=== PATIENT | male | born 1980 | race American Indian/Alaskan Native ===

== ENCOUNTER 2018-09-12 18:58 | Emergency (ER) | payer SELFPAY ==
[2018-09-12 18:59] VITALS: BMI 24.3
[2018-09-12 19:23] VITALS: TEMP 98.3
--- NOTE | 2018-09-12 19:47 | ED PDOC ---
Arrival/HPI <Omkar Schafer - Last Filed: 09/12/18 22:05> - General Historian: Patient - History of Present Illness Narrative History of Present Illness (Text): 38 y/o male with no PMH of asthma presents to the ED c/o left shoulder and upper back pain x 2 weeks. Denies specific trauma but does a lot of heavy lifting and repetitive movement at work. The pain is worse after strenuous work days and with internal rotation of shoulder. Has not taken any medications for pain. Denies chest pain, SOB, fever, chills, numbness, weakness, paresthesias, cough, neck pain, or any other associated symptoms. <Anna Delong - Last Filed: 09/14/18 23:09> - General Chief Complaint: Upper Extremity Problem/Injury Time Seen by Provider: 09/12/18 19:19 Past Medical History - Provider Review Nursing Documentation Reviewed: Yes - Infectious Disease Hx of Infectious Diseases: None - Tetanus Immunization Tetanus Immunization: Unknown - Past Medical History Past Medical History: No Previous - Cardiac Hx Cardiac Disorders: No - Pulmonary Hx Respiratory Disorders: Yes Hx Asthma: Yes - Neurological Hx Neurological Disorder: No - HEENT Hx HEENT Disorder: No - Renal Hx Renal Disorder: No - Endocrine/Metabolic Hx Endocrine Disorders: No - Hematological/Oncological Hx Blood Disorders: No - Integumentary Hx Dermatological Disorder: No - Musculoskeletal/Rheumatological Hx Musculoskeletal Disorders: No - Gastrointestinal Hx Gastrointestinal Disorders: No - Genitourinary/Gynecological Hx Genitourinary Disorders: No - Psychiatric Hx Psychophysiologic Disorder: No Hx Substance Use: Yes - Past Surgical History Past Surgical History: No Previous - Anesthesia Hx Anesthesia: Yes Hx Anesthesia Reactions: No Hx Malignant Hyperthermia: No - Suicidal Assessment Feels Threatened In Home Enviroment: No <Anna Delong - Last Filed: 09/14/18 23:09> Family/Social History - Physician Review Nursing Documentation Reviewed: Yes Family/Social History: No Known Family HX Smoking Status: Heavy Smoker > 10 Cigarettes Daily Hx Alcohol Use: Yes Frequency of alcohol use: Socially Hx Substance Use: Yes Substance used: marijuana Hx Substance Use Treatment: No <Anna Delong - Last Filed: 09/14/18 23:09> Allergies/Home Meds <Omkar Schafer - Last Filed: 09/12/18 22:05> <SindiAnna - Last Filed: 09/14/18 23:09> Allergies/Adverse Reactions: Allergies No Known Allergies Allergy (Verified 09/12/18 19:14) Review of Systems - Review of Systems Constitutional: Normal. absent: Fevers Eyes: Normal. absent: Vision Changes ENT: Normal. absent: Sore Throat, Sinus Congestion Respiratory: Normal. absent: SOB, Cough Cardiovascular: Normal. absent: Chest Pain, Palpitations, Syncope Gastrointestinal: Normal. absent: Abdominal Pain, Nausea, Vomiting Musculoskeletal: Back Pain, Other (left shoulder pain) Skin: Normal. absent: Rash Neurological: Normal. absent: Headache, Dizziness <SindiAnna - Last Filed: 09/14/18 23:09> Physical Exam Vital Signs Temp Pulse Resp BP Pulse Ox 09/12/18 19:13 98.3 F 89 16 133/82 98 <Omkar Schafer - Last Filed: 09/12/18 22:05> Vital Signs Reviewed: Yes Vital Signs Temp Pulse Resp BP Pulse Ox 09/12/18 19:13 98.3 F 89 16 133/82 98 Temperature: Afebrile Blood Pressure: Normal Pulse: Regular Respiratory Rate: Normal Appearance: Positive for: Well-Appearing, Non-Toxic, Comfortable Pain Distress: None Mental Status: Positive for: Alert and Oriented X 3 - Systems Exam Head: Present: Atraumatic, Normocephalic Pupils: Present: PERRL Extroacular Muscles: Present: EOMI Conjunctiva: Present: Normal Mouth: Present: Moist Mucous Membranes Neck: Present: Normal Range of Motion. No: Meningeal Signs, MIDLINE TENDERNESS, Paraspinal Tenderness Respiratory/Chest: Present: Clear to Auscultation, Good Air Exchange. No: Respiratory Distress, Accessory Muscle Use Cardiovascular: Present: Regular Rate and Rhythm, Normal S1, S2 Back: Present: Normal Inspection, Paraspinal Tenderness (left upper thoracic with spasm and tenderness). No: CVA Tenderness, Midline Tenderness Upper Extremity: Present: Normal Inspection, Normal ROM, NORMAL PULSES, Neurovascularly Intact, Capillary Refill < 2s, Other (pain with internal rotation of shoulder; + Gerbers test). No: Cyanosis, Edema, Tenderness, Temperature Abnormalties, Deformity Lower Extremity: Present: Normal Inspection, NORMAL PULSES, Normal ROM, Neurovascularly Intact, Capillary Refill < 2 s. No: Edema, Temperature Abnormalties Neurological: Present: GCS=15, CN II-XII Intact, Speech Normal, Motor Func Grossly Intact, Normal Sensory Function, Gait Normal Skin: Present: Warm, Dry, Normal Color. No: Rashes, Abscess, Abrasion Psychiatric: Present: Alert, Oriented x 3, Normal Insight, Normal Concentration, Normal Affect, Normal Mood <Anna Delong - Last Filed: 09/14/18 23:09> Medical Decision Making - Lab Interpretations Lab Results: Troponin I < 0.01 ng/mL 09/12/18 20:31 Total Bilirubin 0.4 mg/dL (0.2-1.3) 09/12/18 20:31 AST 34 U/L (17-59) 09/12/18 20:31 ALT 18 U/L (7-56) 09/12/18 20:31 Alkaline Phosphatase 70 U/L (38-126) 09/12/18 20:31 Total Protein 8.9 g/dL (5.8-8.3) H 09/12/18 20:31 Albumin 4.8 g/dL (3.0-4.8) 09/12/18 20:31 Globulin 4.0 gm/dL 09/12/18 20:31 Albumin/Globulin Ratio 1.2 (1.1-1.8) 09/12/18 20:31 - RAD Interpretation Radiology Orders: 09/12/18 19:50 CHEST TWO VIEWS (PA/LAT) [RAD] Stat CERVICAL SPINE >18YR W/OBLIQUE [RAD] Stat SHOULDER LEFT [RAD] Stat - Medication Orders Current Medication Orders: Discontinued Medications Diazepam (Valium) 5 mg PO ONCE ONE; Protocol Stop: 09/12/18 19:48 Last Admin: 09/12/18 20:21 Dose: 5 mg Ketorolac Tromethamine (Toradol) 30 mg IVP STAT STA Stop: 09/12/18 19:48 Last Admin: 09/12/18 20:21 Dose: 30 mg MAR Pain Assessment Document 09/12/18 20:21 EB (Rec: 09/12/18 20:21 [place] [facility] [id number] Pain Reassessment Is this a pain reassessment? No Sleep Is patient sleeping during reassessment? No Presence of Pain Presence of Pain Yes Pain Scale Used Protocol: PSCALES Pain Scale Used Numeric Location Pain Location Body Site Shoulder IVP Administration Document 09/12/18 20:21 EB (Rec: 09/12/18 20:21 EB [facility] [id number] Charges for Administration # of IVP Administrations 1 <Omkar Schafer - Last Filed: 09/12/18 22:05> ED Course and Treatment: Initial Plan: * CBC, CMP * Coags * Troponin * EKG * CXR * Left Shoulder XR * Cervical Spine XR Will order ekg and troponin secondary to atraumatic left shoulder pain. HEART Score for Major Cardiac Events RESULT SUMMARY: 1 points Low Score (0-3 points) Risk of MACE of 0.9-1.7%. INPUTS: History > 0 = Slightly suspicious EKG > 0 = Normal Age > 0 = <45 Risk factors > 1 = 1-2 risk factors Initial troponin > 0 = <normal limit EKG shows rate 71; NSR; Normal intervals; Normal axis; No STEMI or other signs of ischemia Bloodwork reviewed, unremarkable. Troponin negative Xrays reviewed, no acute fracture, dislocation, or pulmonary disease. Patient reports significant improvement in pain with medications. History and physical exam suspicious for MSK shoulder pain. Advised orthopedic and PMD f ollowup. Diagnostic testing results and plan of care discussed with patient. Strict instructions given regarding prescription use, importance of followup, and signs/symptoms to return to ER including fever, chest pain, SOB, or any other new/worsening symptoms. Pt verbalized understanding of discussion. Patient is A&Ox3, ambulating with steady gait, with vital signs stable for discharge. - Lab Interpretations Lab Results: 09/12/18 20:31 09/12/18 20:31 Lab Results 09/12/18 20:31: Sodium 139, Potassium 4.1, Chloride 101, Carbon Dioxide 30, Anion Gap 12, BUN 12, Creatinine 0.9, Est GFR ( Amer) > 60, Est GFR (Non- Af Amer) > 60, Random Glucose 85, Calcium 9.6, Phosphorus 3.4, Magnesium 2.0, Total Bilirubin 0.4, AST 34, ALT 18, Alkaline Phosphatase 70, Troponin I < 0.01, Total Protein 8.9 H, Albumin 4.8, Globulin 4.0, Albumin/Globulin Ratio 1.2 09/12/18 20:31: WBC 7.4, RBC 4.60, Hgb 14.5, Hct 43.0, MCV 93.5, MCH 31.5, MCHC 33.7, RDW 14.0, Plt Count 273, MPV 9.9, Neut % (Auto) 43.9 L, Lymph % (Auto) 39.4 H, [place] % (Auto) 5.1, Eos % (Auto) 11.1 H, Baso % (Auto) 0.5, Lymph # (Auto) 2.9, [place] # (Auto) 0.4, Eos # (Auto) 0.8 H, Baso # (Auto) 0.04, Absolute Neuts (auto) 3.25 I have reviewed the lab results: Yes - EKG Interpretation EKG Interpretation (Text): Rate 71; NSR; Normal intervals; Normal axis; No STEMI or other signs of ischemia Interpreted by ED Physician: Yes Type: 12 lead EKG <Anna Delong - Last Filed: 09/14/18 23:09> - PA / PROCESSING INSPECTOR / Resident Statement MD/DO has reviewed & agrees with the documentation as recorded. <Omkar Schafer - Last Filed: 09/12/18 22:05> Disposition/Present on Arrival <Omkar Schafer - Last Filed: 09/12/18 22:05> - Present on Arrival Any Indicators Present on Arrival: No History of DVT/PE: No History of Uncontrolled Diabetes: No Urinary Catheter: No History of Decub. Ulcer: No History Surgical Site Infection Following: None - Disposition Have Diagnosis and Disposition been Completed?: Yes Disposition Time: 20:45 Patient Plan: Discharge <Anna Delong - Last Filed: 09/14/18 23:09> - Disposition Diagnosis: Muscle spasm, Shoulder strain Disposition: HOME/ ROUTINE Condition: IMPROVED Discharge Instructions (ExitCare): Muscle Spasms (DC) Additional Instructions: Ibuprofen every 8 hours as needed, take with food Flexeril night before bed Warm compresses Rest, no strenuous activity or heavy lifting Followup with orthopedic doctor within 2 days Followup with primary doctor within 2 days Return to ER with any new/worsening symptoms Prescriptions: Cyclobenzaprine [Cyclobenzaprine HCl] 10 mg PO HS PRN #7 tab PRN Reason: Muscle Spasm Ibuprofen [Motrin Tab] 600 mg PO Q8 PRN #30 tab PRN Reason: Pain, Moderate (4-7) Referrals: [facility] [place] - Follow up with primary Odell Cruz DO [Staff Provider] - Follow up with primary Gloria Garcia MD [Medical Doctor] - Follow up with primary Forms: [employer] (Mauritian), WORK NOTE
[2018-09-12 20:55] LABS: ALB/GLOB RATIO 1.2 (1.1-1.8); ALBUMIN 4.8 g/dL (3.0-4.8); ALT/SGPT 18 U/L (7-56); AST/SGOT 34 U/L (17-59); BLOOD UREA NITROGEN 12 mg/dL (7-21); CALCIUM 9.6 mg/dL (8.4-10.5); GFR NON-AFRICAN AMERICAN > 60
[2018-09-12 20:58] LABS: BASO # 0.04 K/mm3 (0.0-2.0); BASO % 0.5 % (0.0-3.0); EOS # 0.8 (0.0-0.7); EOS % 11.1 % (1.5-5.0); HEMOGLOBIN 14.5 g/dL (14.0-18.0); LYMPH # 2.9 (1.2-3.4); LYMPH % 39.4 % (22.0-35.0); MEAN CELL VOLUME 93.5 fl (80.0-105.0); MEAN CORPUSCULAR HEMOGLOBIN 31.5 pg (25.0-35.0); MEAN CORPUSCULAR HGB CONC 33.7 g/dl (31.0-37.0); MEAN PLATELET VOLUME 9.9 fl (7.0-11.0); MONO # 0.4 (0.1-0.6); MONO % 5.1 % (1.0-6.0); RBC 4.6 10^6/uL (3.5-6.1); WHITE BLOOD COUNT 7.4 10^3/uL (4.5-11.0)
[2018-09-12 21:06] LABS: TROPONIN I < 0.01 ng/mL
[2018-09-13 02:26] VITALS: BP 119/76; PULSE 74; RESP 13; O2SAT 100
--- NOTE | 2018-09-13 08:50 | RAD ---
Date of service: 09/12/2018 HISTORY: left shoulder pain COMPARISON: 09/07/2014 TECHNIQUE: Chest PA and lateral views FINDINGS: LUNGS: No active pulmonary disease. PLEURA: No significant pleural effusion identified. No pneumothorax apparent. CARDIOVASCULAR: No aortic atherosclerotic calcification present. Normal cardiac size. No pulmonary vascular congestion. OSSEOUS STRUCTURES: No significant abnormalities. VISUALIZED UPPER ABDOMEN: Normal. OTHER FINDINGS: None. IMPRESSION: No active disease.
--- NOTE | 2018-09-13 09:14 | RAD ---
Date of service: 09/12/2018 PROCEDURE: Cervical Spine Radiographs. HISTORY: Pain. COMPARISON: None available. TECHNIQUE: 3 views obtained. FINDINGS: BONES: No fracture. Kyphotic curvature of the spine DISC SPACES: Normal. SOFT TISSUES: Normal. No prevertebral soft tissue swelling. OTHER FINDINGS: None. IMPRESSION: No fracture. Kyphotic curvature of the spine
--- NOTE | 2018-09-13 09:14 | CARD ---
APPROVED REPORT Date of service: 09/12/2018 EKG Measurement Heart [id number] <Conclusion> Normal sinus rhythm Normal ECG
--- NOTE | 2018-09-13 11:13 | RAD ---
Date of service: 09/12/2018 PROCEDURE: Radiographs of the Left Shoulder HISTORY: left shoulder pain COMPARISON: No prior. TECHNIQUE: 3 views obtained. FINDINGS: BONES: Normal. No fracture. JOINTS: Normal. Glenohumeral and acromioclavicular joints preserved. No osteoarthritis. SOFT TISSUES: Normal. OTHER FINDINGS: None. IMPRESSION: Normal radiographs of the left shoulder.
== END 2018-09-12 21:42 | disposition home or self-care (01) ==
LOC: ED 18:58
DX: S46.912A Strain of unspecified muscle, fascia and tendon at shoulder and upper arm level, left arm, initial encounter (principal); M62.838 Other muscle spasm; X50.3XXA Overexertion from repetitive movements, initial encounter; Y92.89 Other specified places as the place of occurrence of the external cause; Y99.8 Other external cause status
CPT/HCPCS: 71046; 72050; 73030; 80053; 83735; 84100; 84484; 85025; 93005; 96374; 99281; J1885